=== PATIENT | female | born 1990 | race Hispanic/Latino ===

== ENCOUNTER 2022-12-11 21:40 | Observation (INO) | payer OTHER ==
[~2022-12-11] VITALS: Ht 167.6 cm; Wt 93.9 kg
[2022-12-11 21:41] VITALS: BP 121/60
[2022-12-11] MEDS ORDERED: LACTATED RINGERS 1000ML 1,000 ML IV SCH ×2 (22:00→23:00)
[2022-12-11 22:39] LABS: APPEARANCE,URINE CLEAR (CLEAR); BILIRUBIN,URINE NEGATIVE (NEGATIVE); COLOR,URINE YELLOW (YELLOW); GLUCOSE, URINE (UA) NEGATIVE (NEGATIVE); KETONES,URINE 40 mg/dL (NEGATIVE); LEUKOCYTE ESTERASE ,URINE NEGATIVE Leu/uL (NEGATIVE); NITRATE,URINE NEGATIVE (NEGATIVE); OCCULT BLOOD,URINE NEGATIVE (NEGATIVE); PROTEIN,URINE 20 mg/dL (NEGATIVE); UROBILINOGEN,URINE 0.2 mg/dL (0.2-1.0)
[2022-12-11 22:45] LABS: BACTERIA,URINE RARE /HPF (None Seen); MUCUS,URINE RARE LPF (None Seen); RBC,URINE 0-1 /HPF (0-1); SQUAMOUS EPITHELIAL CELL,UR RARE /HPF (0-2)
[2022-12-11 22:47] LABS: AMPHET/METH SCREEN,URINE NEGATIVE (NEGATIVE); BARBITURATE SCREEN, URINE NEGATIVE (NEGATIVE); BENZODIAZEPINES SCREEN,URINE NEGATIVE (NEGATIVE); CANNABINOID SCREEN,URINE NEGATIVE (NEGATIVE); COCAINE SCREEN,URINE NEGATIVE (NEGATIVE); OPIATE SCREEN,URINE NEGATIVE (NEGATIVE); PHENCYCLIDINE SCREEN,URINE NEGATIVE (NEGATIVE)
[2022-12-11] MEDS: TERBUTALINE SULFATE VIAL 1MG/ML SQ SCH ×2 (23:19→23:57)
== END 2022-12-12 01:20 | disposition home or self-care (01) ==
LOC: EDH 21:40 → LDH 21:41
PROVIDERS: ADMIT Obstetrics & Gynecology; ATTEND Obstetrics & Gynecology
DX: O62.9 Abnormality of forces of labor, unspecified (principal); O99.891 Other specified diseases and conditions complicating pregnancy; M54.50 Low back pain, unspecified; R10.30 Lower abdominal pain, unspecified; O26.893 Other specified pregnancy related conditions, third trimester; H53.8 Other visual disturbances; Z3A.34 34 weeks gestation of pregnancy
CPT/HCPCS: 96360; 96361 ×2; 59025; 80305; 81001; 96372 ×2; G0378 ×3; G0379; J7120 ×2; J3105